=== PATIENT | male | born 1980 | race Hispanic/Latino ===

== ENCOUNTER → 2021-11-09 | Outpatient (CLI) | payer OTHER | END | disposition home or self-care (01) | LOC: RAH 14:59 | PROVIDERS: ATTEND Family Medicine | DX: S39.92XA Unspecified injury of lower back, initial encounter (principal); Z02.71 Encounter for disability determination; M47.816 Spondylosis without myelopathy or radiculopathy, lumbar region; X58.XXXA Exposure to other specified factors, initial encounter; Y93.89 Activity, other specified; Y92.89 Other specified places as the place of occurrence of the external cause; Y99.8 Other external cause status | CPT/HCPCS: 72100 ==

== ENCOUNTER 2022-11-01 18:30 | Emergency (ER) | payer OTHER ==
[~2022-11-01] VITALS: Ht 175.3 cm; Wt 116.1 kg
[2022-11-01] MEDS ORDERED: AMOX1TAB16 PO (20:24)
[2022-11-01] MEDS ORDERED: NAPR500T6 PO (20:24)
[2022-11-01] MEDS ORDERED: KETOROLAC 30MG VIAL (30MG/ML) IM ONE (20:30)
[2022-11-01] MEDS ORDERED: AMOX/CLAV 875/125MG TAB PO ONE (20:30)
[2022-11-01 21:54] VITALS: BP 126/68
== END 2022-11-01 21:55 | disposition home or self-care (01) ==
LOC: EDH 18:30
DX: M79.674 Pain in right toe(s) (principal); L08.9 Local infection of the skin and subcutaneous tissue, unspecified; Z88.5 Allergy status to narcotic agent
CPT/HCPCS: 99283; 96372; J1885